=== PATIENT | female | born 1955 | race Caucasian/White ===

== ENCOUNTER 2024-05-31 00:26 | Emergency (ER) | payer MEDICARE ==
[~2024-05-31] VITALS: Ht 160 cm; Wt 86.4 kg
[2024-05-31 00:27] VITALS: TEMP 98.2
[2024-05-31] MEDS ORDERED: METF-1211 PO (00:43)
[2024-05-31] MEDS ORDERED: HYDR25TA2 PO (00:43)
[2024-05-31] MEDS ORDERED: OMEP20 PO (00:43)
[2024-05-31] MEDS ORDERED: LISI-893 PO (00:43)
[2024-05-31] MEDS ORDERED: ATOR20TA PO (00:43)
[2024-05-31 00:44] VITALS: BP 126/79; PULSE 89; RESP 20; O2SAT 96
[2024-05-31] MEDS: DiphenhydrAMINE HCL 25 MG CAPSULE PO ONE (01:22)
[2024-05-31] MEDS: PredniSONE 20 MG TABLET PO ONE (01:22)
[2024-05-31] MEDS ORDERED: DIPH25CA85 PO (02:20)
[2024-05-31] MEDS ORDERED: PRED-554 PO (02:20)
== END 2024-05-31 02:35 | disposition home or self-care (01) ==
LOC: EDBD 00:26 → EMS 00:26
DX: T78.40XA Allergy, unspecified, initial encounter (principal); I10 Essential (primary) hypertension; E11.9 Type 2 diabetes mellitus without complications; Z91.013 Allergy to seafood; Z79.84 Long term (current) use of oral hypoglycemic drugs; Z85.3 Personal history of malignant neoplasm of breast; Z79.899 Other long term (current) drug therapy; X58.XXXA Exposure to other specified factors, initial encounter
CPT/HCPCS: 99283; 82962; J7512

== ENCOUNTER 2024-10-13 03:05 | Emergency (ER) | payer MEDICARE ==
[~2024-10-13] VITALS: Ht 157.5 cm; Wt 86.4 kg
[~2024-10-13 03:05] MED LIST: ATOR20TA PO; DIPH25CA85 PO; HYDR25TA2 PO; LISI-893 PO; METF-1211 PO; OMEP-148 PO; PRED-554 PO
[2024-10-13 03:09] VITALS: BP 161/70; PULSE 84; RESP 19; TEMP 98.9; O2SAT 98
[2024-10-13] MEDS ORDERED: DIPH25CA85 PO (04:13)
[2024-10-13] MEDS: DiphenhydrAMINE HCL 25 MG CAPSULE PO ONE (04:45)
[2024-10-13] MEDS: PredniSONE 20 MG TABLET PO ONE (04:45)
== END 2024-10-13 05:31 | disposition home or self-care (01) ==
LOC: EMS 03:05
DX: T78.1XXA Other adverse food reactions, not elsewhere classified, initial encounter (principal); R25.1 Tremor, unspecified; E11.9 Type 2 diabetes mellitus without complications; I10 Essential (primary) hypertension; Z79.84 Long term (current) use of oral hypoglycemic drugs; Z79.52 Long term (current) use of systemic steroids; Z79.899 Other long term (current) drug therapy; X58.XXXA Exposure to other specified factors, initial encounter
CPT/HCPCS: 99283; J7512